=== PATIENT | female | born 1935 | race Two or more races ===

== ENCOUNTER 2018-06-14 09:14 | Outpatient (CLI) | payer OTHER | END 2018-06-14 14:27 | disposition home or self-care (01) | LOC: LAB 09:14 | DX: E78.49 Other hyperlipidemia (principal); I11.9 Hypertensive heart disease without heart failure; K92.1 Melena; E55.9 Vitamin D deficiency, unspecified; E11.9 Type 2 diabetes mellitus without complications; E03.8 Other specified hypothyroidism; H40.89 Other specified glaucoma ==

== ENCOUNTER 2018-06-15 08:29 | Outpatient (CLI) | payer OTHER | END 2018-06-15 08:33 | disposition home or self-care (01) | LOC: RAD 08:29 | DX: Z12.31 Encounter for screening mammogram for malignant neoplasm of breast (principal); Z87.898 Personal history of other specified conditions; N60.11 Diffuse cystic mastopathy of right breast; N60.12 Diffuse cystic mastopathy of left breast; H40.89 Other specified glaucoma; E78.49 Other hyperlipidemia; I11.9 Hypertensive heart disease without heart failure ==

== ENCOUNTER 2018-06-16 08:58 | Outpatient (CLI) | payer OTHER | END 2018-06-16 10:29 | disposition home or self-care (01) | LOC: NUCLEAR 08:58 | DX: M81.0 Age-related osteoporosis without current pathological fracture (principal); H40.9 Unspecified glaucoma; E78.49 Other hyperlipidemia ==

== ENCOUNTER → 2019-04-04 08:34 | Outpatient (CLI) | payer OTHER | END | disposition home or self-care (01) | LOC: LAB 08:34 | DX: Z13.89 Encounter for screening for other disorder (principal); Z78.9 Other specified health status ==

== ENCOUNTER 2019-04-06 11:32 | Outpatient (CLI) | payer OTHER | END 2019-04-06 15:00 | disposition home or self-care (01) | LOC: LAB 11:32 | DX: Z13.89 Encounter for screening for other disorder (principal) ==

== ENCOUNTER 2019-07-26 08:28 | Outpatient (CLI) | payer OTHER | END 2019-07-26 08:33 | disposition home or self-care (01) | LOC: LAB 08:28 | DX: E78.49 Other hyperlipidemia (principal); I44.0 Atrioventricular block, first degree; L03.031 Cellulitis of right toe; H40.89 Other specified glaucoma; M81.0 Age-related osteoporosis without current pathological fracture; E05.90 Thyrotoxicosis, unspecified without thyrotoxic crisis or storm; E03.8 Other specified hypothyroidism ==

== ENCOUNTER → 2019-07-26 | Outpatient (CLI) | payer OTHER | END | disposition home or self-care (01) | LOC: SONOGRAMA 09:42 → RAD 09:42 → MAMO-SONO 10:45 | DX: Z12.39 Encounter for other screening for malignant neoplasm of breast (principal); L03.031 Cellulitis of right toe; I10 Essential (primary) hypertension ==

== ENCOUNTER 2019-07-31 12:59 | Outpatient (CLI) | payer OTHER | END 2019-07-31 15:00 | disposition home or self-care (01) | LOC: LAB 12:59 | DX: M10.9 Gout, unspecified (principal) ==

== ENCOUNTER 2020-08-07 09:09 | Outpatient (CLI) | payer OTHER | END 2020-08-07 09:18 | disposition home or self-care (01) | LOC: LAB 09:09 | DX: E03.8 Other specified hypothyroidism (principal); Z78.9 Other specified health status; Z12.11 Encounter for screening for malignant neoplasm of colon; I11.9 Hypertensive heart disease without heart failure; E05.90 Thyrotoxicosis, unspecified without thyrotoxic crisis or storm; Z13.29 Encounter for screening for other suspected endocrine disorder ==

== ENCOUNTER 2020-09-08 09:25 | Outpatient (CLI) | payer OTHER | END 2020-09-08 10:01 | disposition home or self-care (01) | LOC: NUCLEAR 09:25 | DX: M81.0 Age-related osteoporosis without current pathological fracture (principal); Z13.820 Encounter for screening for osteoporosis; I11.9 Hypertensive heart disease without heart failure; Z12.39 Encounter for other screening for malignant neoplasm of breast ==

== ENCOUNTER → 2020-09-15 | Outpatient (CLI) | payer OTHER | END | disposition home or self-care (01) | LOC: MAMO-SONO 08-21 08:45 | DX: I11.9 Hypertensive heart disease without heart failure (principal); N60.01 Solitary cyst of right breast; N60.02 Solitary cyst of left breast; N64.89 Other specified disorders of breast; Z12.39 Encounter for other screening for malignant neoplasm of breast; M81.0 Age-related osteoporosis without current pathological fracture; Z13.820 Encounter for screening for osteoporosis ==

== ENCOUNTER 2021-09-07 08:13 | Outpatient (CLI) | payer OTHER | END 2021-09-07 08:23 | disposition home or self-care (01) | LOC: LAB 08:13 | DX: G30.8 Other Alzheimer's disease (principal); I70.0 Atherosclerosis of aorta; I11.9 Hypertensive heart disease without heart failure ==

== ENCOUNTER 2022-09-01 09:29 | Outpatient (CLI) | payer OTHER | END 2022-09-01 09:31 | disposition home or self-care (01) | LOC: LAB 09:29 | PROVIDERS: ATTEND Internal Medicine | DX: I11.9 Hypertensive heart disease without heart failure (principal); E78.5 Hyperlipidemia, unspecified; G30.8 Other Alzheimer's disease; Z13.29 Encounter for screening for other suspected endocrine disorder; E03.9 Hypothyroidism, unspecified; E05.90 Thyrotoxicosis, unspecified without thyrotoxic crisis or storm ==

== ENCOUNTER 2022-09-01 10:33 | Outpatient (CLI) | payer OTHER | END 2022-09-01 10:42 | disposition home or self-care (01) | LOC: RAD 10:33 | PROVIDERS: ATTEND Internal Medicine | DX: I11.9 Hypertensive heart disease without heart failure (principal); I70.0 Atherosclerosis of aorta; E78.5 Hyperlipidemia, unspecified ==